=== PATIENT | male | born 1960 | race Caucasian/White ===

== ENCOUNTER 2017-06-19 09:42 | Day surgery (SDC) | payer BC ==
[~2017-06-19] VITALS: Ht 188 cm; Wt 93.7 kg
[~2017-06-19 09:42] MED LIST: ASPIRIN 81M81 MG/TA2 PO; ATIVAN0.5 MG PO; FLOMAX 0.40.4 MG/CAP PO; LORTAB 7.5/5001 TAB; NEXIUM 20MG20 MG PO; NO HOME MEDICATIONS; NORCO 325 MG-51 TAB PO; PHENERGAN 25 TA25 MG PO
[2017-06-19 10:40] VITALS: BP 131/95; PULSE 64; TEMP 97.6
[2017-06-19 12:15] VITALS: BP 103/79; PULSE 64; TEMP 96.4
[2017-06-19 12:30] VITALS: BP 92/64; PULSE 55
[2017-06-19 12:45] VITALS: BP 110/79; PULSE 55
[2017-06-19 13:00] VITALS: BP 100/79; PULSE 60
== END 2017-06-19 13:15 | disposition home or self-care (01) ==
LOC: SDCO 09:42
DX: Z12.11 Encounter for screening for malignant neoplasm of colon (principal); K64.0 First degree hemorrhoids; K21.9 Gastro-esophageal reflux disease without esophagitis; I48.91 Unspecified atrial fibrillation; Z80.0 Family history of malignant neoplasm of digestive organs
CPT/HCPCS: OP; J2250; J2405; J3010